=== PATIENT | female | born 1935 | race Caucasian/White ===

== ENCOUNTER 2017-12-10 10:06 | Inpatient (IN) ==
--- NOTE | 2017-12-10 08:15 | Anesthesia Evaluation PreOp ---
Date of Encounter: 12/10/17 Time of Encounter: 10:38 - Past History Planned Operation: Right Total Shoulder Cardiac History: CHF, HTN Pulmonary History: Snore, ISAAC Dx (uses CPAP) ORTHOPEDIC CAST SPECIALIST History: TIA Other Medical History: Hepatic (autoimmune hepatitis), GERD, Other (Factor 5 Leiden, H/O DVT) Anesthesia History: No Prior Anesthetic Complications, Past Anesthesia Alcohol Use: none Drug use: none Medications and Allergies Aspirin Enteric Coated [Aspirin EC] 81 mg PO DAILY 08/12/16 [History] Calcium Carbonate/Vitamin D3 [Calcium 500-Vit D3 200 Tablet] 1 each PO DAILY 09/27 [History] Cholecalciferol (Vitamin D3) [Vitamin D3] 2,000 unit PO DAILY 08/12/16 [History] Citalopram [CeleXA] 20 mg PO HS 08/12/16 [History] Codeine Sulfate 30 mg PO BID PRN 08/12/16 [History] Gabapentin [Neurontin] 400 mg PO TID 08/12/16 [History] Meclizine HCl [Verticalm] 25 mg PO TID PRN 08/12/16 [History] Multivitamin with Minerals [One-A-Day Maximum Formula] 1 each PO DAILY 08/12/16 [History] Oxybutynin Chloride [Ditropan Xl] 5 mg PO DAILY 08/12/16 [History] Ropinirole HCl [Requip] 0.25 mg PO TID 08/12/16 [History] Vit C/Vit E AC/Lut/Copper/Zinc [Preservision Lutein Softgel] 1 each PO DAILY 09/27 [History] Atorvastatin [Lipitor] 10 mg PO HS 07/21/17 [History] Furosemide [Lasix] 20 mg PO DAILY 07/21/17 [History] Omeprazole [PriLOSEC] 40 mg PO DAILY 07/21/17 [History] Oxygen 2 l NS HS 07/21/17 [History] Meclizine HCl [Verticalm] 25 mg PO 1200 12/10/17 [History] predniSONE [PredniSONE] 2.5 mg PO Q48H 12/10/17 [History] predniSONE [PredniSONE] 5 mg PO Q48H 12/10/17 [History] 3 Allergy/AdvReac Type Severity Reaction Status Date / Time Ethambutol Allergy Mild Blurry Verified 12/10/17 10:48 Vision acetaminophen [From Tylenol] Allergy HEPATITIS Verified 12/10/17 10:48 REACTION aspirin [ASA] Allergy UNKNOWN Verified 12/10/17 10:48 clarithromycin Allergy Rash Verified 12/10/17 10:48 morphine Allergy Shakiness Verified 12/10/17 10:48 Sulfa (Sulfonamide Allergy unknown Verified 12/10/17 10:48 Antibiotics) azathioprine [From Imuran] AdvReac Shakiness Verified 12/10/17 10:48 cephalexin [From Keflex] AdvReac Diarrhea Verified 12/10/17 10:48 Oxycodone AdvReac Nausea Verified 12/10/17 10:48 Penicillins [PCN] AdvReac Hives Verified 12/10/17 10:48 - Meds/Allergy Pre-op Review Medications Reviewed: Yes Allergies Reviewed: Yes Beta Blockers on Current Med List: No Anesthesia Results - Labs Laboratory Tests 12/09/17 12/09/17 12/09/17 14:35 14:35 14:35 WBC 9.7 Hgb 14.1 Hct 43.1 Plt Count 252 PT 11.5 INR 1.1 APTT 30.1 Sodium 139 Potassium 4.3 BUN 22 Creatinine 1.00 - Imaging EKG: report reviewed (08/19/2017 SINUS TACHYCARDIA MARKED LEFT AXIS DEVIATION [ QRS AXIS < -30] LEFT BUNDLE BRANCH BLOCK [120+ ms QRS DURATION, 80+ ms Q/S IN V1 /V2, 85+ ms R IN I/aVL/V5/V6] INTERPRETATION BASED ON A DEFAULT AGE OF 40 YEARS ) Additional studies: 07/09/2017 Echo Impressions: LVEF 55%. Normal LV chamber size, wall thickness and function. Mild left ventricular diastolic dysfunction. Normal right ventricular structure and function. No evidence of pulmonary hypertension. No significant valvular dysfunction. 08/07/2010 Cath Impression: Normal coronary angiography; there was no evidence of significant coronary artery disease. Normal left ventricular size and contractility. The left ventricular ejection fraction was 60%. Anesthesia Exam O2 Sat Height 1.63 m Height 1.63 m Height 1.63 m Weight 80.286 kg Weight 80.286 kg Weight 80.286 kg O2 Sat by Pulse Oximetry 92 Vital Signs Temp Pulse Resp BP Pulse Ox 98.3 F 75 18 113/74 92 12/10/17 10:29 12/10/17 10:29 12/10/17 10:29 12/10/17 10:29 12/10/17 10:29 Height: 5'4'' Weight: 177 lbs NPO (# of Hours): 8 Pain Scale: 0 Pain Scale Used: Numeric (1 - 10) - HEENT Pupil (Motor): EOMI Mallampati: IV Teeth: Poor dentition Denture Type: Upper: Partial, Lower: Partial Oral Opening: Greater than 3 - ORTHOPEDIC CAST SPECIALIST LOC: Oriented ORTHOPEDIC CAST SPECIALIST Motor: Normal RUE, Normal LUE, Normal RLE, Normal LLE, Normal Face ORTHOPEDIC CAST SPECIALIST Sensory: Normal: Face, Deficit: RUE (mild neuropathy hand), LUE (mild neuropathy hand), RLE (mild neuropathy foot), LLE (mild neuropathy foot) - Cardiac Rhythm: Regular Murmur: None - Pulmonary Breath Sounds: bilateral Clear Respiratory Effort: Symmetrical Anesthesia Assess/Plan ASA Score: 3 Modified Myra Scale for Level of Consciousness: Cooperative, oriented, and tranquil Anesthetic Plan: General, Regional Monitoring Plan: Standard Monitors Recovery Plan: PACU
[~2017-12-10 10:06] MED LIST: *HR* FentaNYL (PF) 100 MCG/2 ML VIAL IVP PRN; *HR* Labetalol 20 MG/4 ML SYRINGE IVP PRN; *HR* OxyCODONE Immed Rel 5 MG TABLET PO PRN
[2017-12-10] MEDS ORDERED: Lidocaine -MPF 1% 2 ML VIAL ID ONE (10:26)
[2017-12-10] MEDS ORDERED: Clindamycin 900 MG/50 ML 900 MG/50 ML IV.SOLN IVPB ONE (10:26)
[2017-12-10] MEDS ORDERED: Ringers Solution, Lactated 1,000 ML IVC SCH ×2 (10:30→14:27)
--- NOTE | 2017-12-10 11:03 | History & Physical Report ---
Date of Encounter: 12/10/17 Time of Encounter: 11:01 24 Hour HP Update - Instructions Instructions: If the History and Physical is less than 30 days old and was completed prior to A.M. admission and or procedure and has NOT been updated on calendar day of procedure please complete this update prior to performing procedure. - Update Patient reports changes in Medical Condition: No Changes in examination, assessment, or condition: No Changes in Medication: No Preop tests/diagnostics Reviewed: Yes Surgery Remains Indicated: Yes Consent for Planned Operative Procedure(s) Verified: Yes - Pre-Operative Checklist Preoperative Checklist Indicated: No Prophylactic Antibiotic Ordered: Yes Is VTE Prophylaxis Indicated?: Yes
--- NOTE | 2017-12-10 11:08 | Discharge Summary ---
Date of Encounter: 12/12/17 Time of Encounter: 06:41 - Discharge Diagnosis (1) Rotator cuff tear arthropathy of right shoulder Priority: Primary Status: Chronic (2) Obesity (BMI 30.0-34.9) Priority: Secondary Status: Chronic (3) Meniere's disease Priority: Secondary Status: Chronic Qualifiers: Laterality: unspecified laterality Qualified Code(s): H81.09 - Meniere's disease, unspecified ear (4) Restless leg syndrome, controlled Priority: Secondary Status: Chronic (5) HLD (hyperlipidemia) Priority: Secondary Status: Chronic Qualifiers: Hyperlipidemia type: unspecified Qualified Code(s): E78.5 - Hyperlipidemia , unspecified (6) HTN (hypertension) Priority: Secondary Status: Chronic Qualifiers: Hypertension type: unspecified Qualified Code(s): I10 - Essential (primary ) hypertension (7) Factor V Leiden Priority: Secondary Status: Chronic (8) Autoimmune hepatitis Priority: Secondary Status: Chronic (9) Diastolic CHF Priority: Secondary Status: Chronic Qualifiers: Heart failure chronicity: unspecified Qualified Code(s): I50.30 - Unspecified diastolic (congestive) heart failure (10) Atrial fibrillation Priority: Secondary Status: Chronic Qualifiers: Atrial fibrillation type: unspecified Qualified Code(s): I48.91 - Unspecified atrial fibrillation (11) Osteoporosis Priority: Secondary Status: Chronic Qualifiers: Osteoporosis type: unspecified Presence of current pathological fracture: unspecified Qualified Code(s): M81.0 - Age-related osteoporosis without current pathological fracture (12) Presence of IVC filter Priority: Secondary Status: Chronic (13) Status post CVA Priority: Secondary Status: Chronic (14) Herpes zoster Priority: Secondary Status: Acute Qualifiers: Herpes zoster complications: without complications Qualified Code(s): B02.9 - Zoster without complications (15) Recurrent falls Priority: Secondary Status: Acute (16) Status post total replacement of right shoulder Priority: Primary Status: Acute (17) T2DM (type 2 diabetes mellitus) Priority: Secondary Status: Acute Qualifiers: Diabetes mellitus care home insulin use: without care home use Diabetes mellitus complication status: with neurologic complications Diabetes mellitus complication detail: with polyneuropathy Qualified Code(s): E11.42 - Type 2 diabetes mellitus with diabetic polyneuropathy - Hospital Course Hospital course: Ms. Jha is a 82 year old female Status post right total shoulder replacement The patient had an uneventful postoperative course. They received antibiotics and physical therapy and were discharged in stable condition. There will follow -up in the office in 2 weeks. - Time Spent with Patient Total time spent providing and/or coordinating discharge services: - Discharge Medications Home Medications: Aspirin Enteric Coated [Aspirin EC] 81 mg PO DAILY 08/12/16 [History] Calcium Carbonate/Vitamin D3 [Calcium 500-Vit D3 200 Tablet] 1 each PO DAILY 09/27 [History] Cholecalciferol (Vitamin D3) [Vitamin D3] 2,000 unit PO DAILY 08/12/16 [History] Citalopram [CeleXA] 20 mg PO HS 08/12/16 [History] Codeine Sulfate 30 mg PO BID PRN 08/12/16 [History] Gabapentin [Neurontin] 400 mg PO TID 08/12/16 [History] Meclizine HCl [Verticalm] 25 mg PO TID PRN 08/12/16 [History] Multivitamin with Minerals [One-A-Day Maximum Formula] 1 each PO DAILY 08/12/16 [History] Oxybutynin Chloride [Ditropan Xl] 5 mg PO DAILY 08/12/16 [History] Ropinirole HCl [Requip] 0.25 mg PO TID 08/12/16 [History] Vit C/Vit E AC/Lut/Copper/Zinc [Preservision Lutein Softgel] 1 each PO DAILY 09/27 [History] Atorvastatin [Lipitor] 10 mg PO HS 07/21/17 [History] Furosemide [Lasix] 20 mg PO DAILY 07/21/17 [History] Omeprazole [PriLOSEC] 40 mg PO DAILY 07/21/17 [History] Oxygen 2 l NS HS 07/21/17 [History] Meclizine HCl [Verticalm] 25 mg PO 1200 12/10/17 [History] predniSONE [PredniSONE] 2.5 mg PO Q48H 12/10/17 [History] predniSONE [PredniSONE] 5 mg PO Q48H 12/10/17 [History] Allergies/Adverse Reactions: 3 Allergy/AdvReac Type Severity Reaction Status Date / Time Ethambutol Allergy Mild Blurry Verified 12/10/17 10:48 Vision acetaminophen [From Tylenol] Allergy HEPATITIS Verified 12/10/17 10:48 REACTION aspirin [ASA] Allergy UNKNOWN Verified 12/10/17 10:48 clarithromycin Allergy Rash Verified 12/10/17 10:48 morphine Allergy Shakiness Verified 12/10/17 10:48 Sulfa (Sulfonamide Allergy unknown Verified 12/10/17 10:48 Antibiotics) azathioprine [From Imuran] AdvReac Shakiness Verified 12/10/17 10:48 cephalexin [From Keflex] AdvReac Diarrhea Verified 12/10/17 10:48 Oxycodone AdvReac Nausea Verified 12/10/17 10:48 Penicillins [PCN] AdvReac Hives Verified 12/10/17 10:48 Primary care physician: Turner Ventura MD - Patient Status Disposition: Home Health Service Condition: Good Functional capacity at discharge: uses cane/walker Overall status at discharge: patient is progressing back to baseline - Discharge Instructions Follow Up With: Turner Ventura MD [Primary Care Provider] -
[2017-12-10] MEDS ORDERED: *HR* Midazolam HCl 2 MG/2 ML VIAL ONE (11:33)
[2017-12-10] MEDS ORDERED: *HR* FentaNYL (PF) 100 MCG/2 ML VIAL ONE (11:33)
[2017-12-10] MEDS ORDERED: *HR* Propofol 200 MG/20 ML VIAL IVP ONE (11:33)
[2017-12-10] MEDS ORDERED: ROPIVACAINE HCL/PF 0.5% 30 ML VIAL ONE (11:35)
[2017-12-10] MEDS ORDERED: Dexamethasone 4 MG/ML VIAL ONE (11:35)
[2017-12-10] MEDS ORDERED: Bupivacaine/Clonidine Syringe 1 EACH SYRINGE ONE (11:35)
[2017-12-10] MEDS ORDERED: *HR* Etomidate 40 MG/20 ML VIAL IVP ONE (11:56)
--- NOTE | 2017-12-10 12:05 | Anesthesia Procedures ---
Date of Encounter: 12/10/17 Time of Encounter: 11:45 Procedures: Anesthesia - Nerve Block Procedure Date: 12/10/17 Time: 11:45 Allergies/Adv Reactions: multiple see chart Pre-op Diagnosis: right shoulder rotator cuff arthropathy Surgical Procedure: right total shoulder reverse Checklist: Correct Patient Identifier, Correct procedure, History checked (with dr Mcgrath) Correct side: Right Blood Thinner: No Monitor Applied: EKG, BP, Pulse Oximetry Supplemental Oxygen via Nasal Cannula (L/min): 2 Sedation: Versed (mg): 1 Sedation: Fentanyl (mcg): 50 Indication: Post Op Analgesia Pre-op Neuro Deficits: No Block Type: Supraclavicular, Other (superficial cervical and intercostobrachial) Catheter placed: No Sterile Technique: Yes Ultrasound used: Yes Anatomy identified: Yes Visual spread of Local: Yes Neuro Stimulation: No Blood on Needle Aspiration: No Smooth Injection of Local: Yes Pain with Injection of Local: No Prep: Chlorhexadine Needle: 22 x 50 mm Stimuplex Local: 0.25% Bupivicaine w/Clonidine 20 mcg/cc (10 ml used for superficial cervical and intercostobrachial), Ropivacaine (0.5% 30 ml with decadron 4 mg for supraclavicular) Volume (cc): 40 Number of Attempts: 1 Complications: None/effective block Vitals: see nurses notes for vitals, patient tolerated well, vitals stable throughout
[2017-12-10] MEDS ORDERED: Lidocaine -MPF 2% 2 ML VIAL ONE (12:34)
[2017-12-10] MEDS ORDERED: *HR* PHENYLEPHRINE 1,000 MCG/10 ML SYRINGE IVP ONE (12:48)
[2017-12-10] MEDS ORDERED: Hydrocortisone Sodium Succ 100 MG/2 ML VIAL ONE (12:56)
[2017-12-10] MEDS ORDERED: EPHEDrine 50 MG/ML VIAL ONE (13:01)
--- NOTE | 2017-12-10 13:29 | Orthopedic Operative Note ---
Date of procedure: 12/10/17 Pre-op diagnosis: Right shoulder cuff tear arthropathy Post-op diagnosis: same Procedure: Procedure: Total Shoulder Replacment Reverse, right Estimated blood loss: 100 cc Hardware: Metal and polyethylene replacement: Arthrex small glenoid baseplate, 2 4.5 screws. 1 6.5 screw, 39+4 glenosphere, 6 humeral stem, poly insert3 Exam Under anesthesia: Full motion no instability Procedural Notes: Irreparable rotator cuff tear Operative procedure: The patient was brought to the operating room and placed on the operating room table. After general anesthesia was administered the operative shoulder was examined. Findings were noted. The patient was placed in the modified beachchair position. All pressure points were padded appropriately. And the head was stabilized in the neutral position. The operative extremity was prepped and draped in the sterile surgical fashion. The patient received IV antibiotics prior to skin incision. A standard deltopectoral approach was made to the operative shoulder. Incision was made to the skin and subcutaneous tissue,hemo stasis was obtained with Bovie cautery. Using careful blunt dissection the cephalic vein was identified and mobilized medially. The deltopectoral interval was developed and the clavipectoral fascia was incised. The subscap was released off the lesser tuberosity and tagged with #2 FiberWire suture subscap was irreparable. The humerus was dislocated patient noted to have irreparable tear supraspinatus tendon, and the humeral cut was made along the anatomic neck. Anterior and posterior Bankart retractors were placed to expose the glenoid. The glenoid guide was seated and the centering hole was made. It was reamed with the appropriate reamer. Small baseplate was seated and secured with (2) 4.5 screws and one 6.5 screw. The baseplate was irrigated and dried and the 39+4 Glenosphere was seated and secured with the Garza taper. The Garza taper was tested and found to be secure the humerus was redislocated and prepared with the diaphyseal reamers, followed by a broaching process up to the appropriate size 6 in the patient's anatomic version. The metaphyseal reamer was then utilized. Trial reduction found the shoulder to be relocatable. Trial components were removed and the 6 stem was impacted in place in the patient's anatomic version. Trial reduction found the shoulder to be relocatable and stable with the appropriate 3 Trial component was removed and the real implant was seated and secured the shoulder was reduced. The shoulder had excellent motion and excellent stability and no evidence of dislocation. The deep tissue was irrigated with pulse irrigation. T The deltopectoral interval was closed with a running #1 PDS suture, subcutaneous tissue was irrigated and closed with 0 PDS suture, the skin was closed with Dermabond. The patient was placed in a sterile dressing, abduction brace and extubated. The patient was then transferred to the recovery room in stable condition. Anesthesia: GETA Surgeon: Gopal Sevilla Was there an assistant property manager present: No Estimated blood loss (cc): 100 Condition: stable Disposition: PACU
[2017-12-10 14:08] LABS: Hematocrit 41.6 % (35.3-44.9)
--- NOTE | 2017-12-10 14:15 | Anesthesia Evaluation Post Op ---
Date of Encounter: 12/10/17 Time of Encounter: 14:14 - Vital Signs Vital Signs: Vital Signs/O2 Sat, Most Current Temp Pulse Resp BP Pulse Ox 97.2 F L 77 16 129/80 93 12/10/17 13:40 12/10/17 14:00 12/10/17 14:00 12/10/17 14:00 12/10/17 14:00 - Lungs Lungs: Clear Ascult./Percussion - Airway Airway: Non-obstructed - Cardiovascular Regular Rate - Mental Status Mental Status: Alert & Oriented, Answers Appropriately - Pain Pain Scale: 0 - Hydration Hydration: NPO, Has not voided - Discharge PostOp Status: Transfer Patient to floor
[2017-12-10] MEDS ORDERED: *HR* Codeine Sulfate 30 MG TABLET PO PRN (14:27)
[2017-12-10] MEDS ORDERED: Sennosides 8.6 MG TABLET PO PRN (14:27)
[2017-12-10] MEDS ORDERED: D5% in Water 1,000 ML IVC PRN (14:27)
[2017-12-10] MEDS ORDERED: *HR* HYDROcodone/Acet 10/325 mg TABLET PO PRN (14:27)
[2017-12-10] MEDS ORDERED: MOM Conc 10 ML UD.LIQ PO PRN (14:27)
[2017-12-10] MEDS ORDERED: Ondansetron 4 MG/2 ML VIAL IVP PRN (14:27)
[2017-12-10] MEDS ORDERED: Temazepam 15 MG CAPSULE PO PRN (14:27)
[2017-12-10] MEDS ORDERED: Naloxone 0.4 MG/ML INJ IVP PRN (14:27)
[2017-12-10] MEDS ORDERED: *HR* Dextrose 50 % in Water (Syg) 50 ML SYRINGE IVP PRN (14:27)
[2017-12-10] MEDS ORDERED: Dextrose Gel 15 GM/37.5 ML TUBE PO PRN ×2 (14:27)
--- NOTE | 2017-12-10 15:21 | Event Note ---
<MarilinmagnusWest bunn - Last Filed: 12/10/17 15:21> Date of Encounter: 12/10/17 Time of Encounter: 15:12 Rapid response called at 1505. Patient was noticed to have right-sided facial droop and weakness in her right upper extremity. She is postoperative for a right shoulder replacement as of this afternoon. Patient was seen and examined at bedside. She was questioned and was alert and oriented 3 and answering questions appropriately. She had no complaints including numbness, tingling, weakness at time of rapid response. Per nursing report, they held a mirror to her face and she said that the right-sided facial droop was new. NIH stroke scale was assessed and calculated to be 1. Patient had a right upper extremity nerve block prior to her surgery but did report sensation bilaterally. Muscle strength equal in both upper extremities. Due to low NIH stroke scale and minimal symptoms from the patient she was not sent to the emergency room for telecommunication. We will obtain a head CT and perform neurologic checks every 2 hours. We will also obtain blood work of CBC, BMP, coagulation studies. Primary attending notified. <Adolfo Keating - Last Filed: 12/10/17 18:24> Date of Encounter: 12/10/17 Rapid response called due to R facial droop. Pt with hx of TIA and factor V Leiden. Exam Slight R facial droop noted. NIH 1 CT neg for bleed. I/P 1. Possible TIA versus CVA given history. Agree with assessment and plan as documented above. CCM 38min
[2017-12-10] MEDS: Insulin LISPRO 300 UNITS/3 ML VIAL SQ SCH ×3 (15:30→20:55)
[2017-12-10 15:51] LABS: INR 1.1; Prothrombin Time 11.8 Seconds (9.4-12.1)
[2017-12-10 15:53] LABS: Activated Partial Thrombo Time 29.3 Seconds (26.0-36.0)
[2017-12-10] MEDS ORDERED: Clindamycin 900 MG/50 ML 900 MG/50 ML IV.SOLN IVPB SCH (16:00)
[2017-12-10 16:05] LABS: BUN/Creatinine Ratio 23 (6-26); Blood Urea Nitrogen 22 mg/dL (8-23); Calcium 9.5 mg/dL (8.6-10.3); Carbon Dioxide 25 mEq/L (23-29); Chloride 109 mEq/L (98-107); Glucose 120 mg/dL (70-105); Osmolality,Calculated 299 (280-300); Potassium 3.8 mEq/L (3.5-5.1); Sodium 142 mEq/L (136-145); eGFR For African Americans > 60 (> 60); eGFR For Non-African Americans 56 (> 60)
[2017-12-10] MEDS: rOPINIRole 0.25 MG TABLET PO SCH ×2 (16:05→20:55)
[2017-12-10] MEDS: Gabapentin 400 MG CAPSULE PO SCH ×2 (16:05→20:55)
--- NOTE | 2017-12-10 17:46 | Event Note ---
Date of Encounter: 12/10/17 Time of Encounter: 17:15 POD#0 R TSR Reverse 12/10/17 Roel Patient seen following rapid response. Resting comfortably in bed - asleep upon entering room. Easily aroused by saying name. Patient alert and oriented x 3. Discussed facial drooping. CN grossly appear intact. Slight drooping right eyelid noted, watering of this eye noted. Patient denies blurred vision. Admits to clearing throat, though denies choking or feeling unable to swallow. Nurse states completed dysphagia screen and patient passed. Patient denies altered sensation to right side of face. Admits to altered sensation to RUE as expected as patient received block. RLE appears unaffected. CT negative. Rapid response team appreciated. Anesthesia also it appears evaluated patient - they state likely secondary to block extension to neck and face. After examination and Head Ct negative would agree with assessment and request nursing staff to continue to monitor and will expect resolution appx 24-48 hrs following block administration. Communicated this to patient. Dr. Sevilla notified. Will reevaluate again tomorrow.
[2017-12-10] MEDS: predniSONE 5 MG TABLET PO SCH (18:03)
[2017-12-10] MEDS: *HR* Enoxaparin 30 MG/0.3 ML SYRINGE SQ SCH (18:03)
--- NOTE | 2017-12-10 18:05 | Anesthesia Progress Note ---
Date of Encounter: 12/10/17 Time of Encounter: 16:15 Anesthesia Note - Note Note: I was made aware of a patient event. Nursing staff noticed right facial droop. Concern for CVA given pmh of TIA. The patient had right shoulder surgery under [facility], with preop supraclavicular block for postop pain control. The patient was interviewed and examined in the presence of RN. Subjective: The patient is comfortable, not in any distress. c/o watery right eye. Objective: AAOx3, VSS. Cranial nerves 3, 4, 6, 7 and 12 are grossly normal. Right eye ptosis and conjuctival congestion. Partial sensory and motor nerve blockade in right upper extremity. Left upper extremity and bilateral lower extremities with normal sensation and grade 5/5 motor function. Assessement and Impression: Cervical sympathetic nerve blockade (Camilo's syndrome). Plan: The patient and nursing staff were reassured that this is a common side effect of brachial plexus blocks (supraclavicular and interscalene), and is expected to resolve spontaneously with the block, in approximately 12-24 hours.
[2017-12-10] MEDS: Clindamycin 900 MG/50 ML 900 MG/50 ML IV.SOLN IVPB SCH (20:54)
[2017-12-10] MEDS ORDERED: NON-FORMULARY MEDICATION 1 EACH EACH (Oxygen [Oxygen] 2 L) NS SCH (21:00)
[2017-12-11 01:20] LABS: Hematocrit 39.6 % (35.3-44.9); Hemoglobin 13.1 g/dL (11.5-15.4)
[2017-12-11] MEDS: traMADol 50 MG TABLET PO PRN (04:38)
[2017-12-11] MEDS: Clindamycin 900 MG/50 ML 900 MG/50 ML IV.SOLN IVPB SCH (04:38)
--- NOTE | 2017-12-11 06:20 | Orthopedics Progress Note ---
Date of Encounter: 12/11/17 Time of Encounter: 06:19 - Assessment and Plan (1) Rotator cuff tear arthropathy of right shoulder Current Visit: Yes Status: Chronic (2) Obesity (BMI 30.0-34.9) Current Visit: Yes Status: Chronic (3) Meniere's disease Current Visit: No Status: Chronic Qualifiers: Laterality: unspecified laterality Qualified Code(s): H81.09 - Meniere's disease, unspecified ear (4) Restless leg syndrome, controlled Current Visit: No Status: Chronic (5) HLD (hyperlipidemia) Current Visit: No Status: Chronic Qualifiers: Hyperlipidemia type: unspecified Qualified Code(s): E78.5 - Hyperlipidemia , unspecified (6) HTN (hypertension) Current Visit: No Status: Chronic Qualifiers: Hypertension type: unspecified Qualified Code(s): I10 - Essential (primary ) hypertension (7) Factor V Leiden Current Visit: No Status: Chronic (8) Autoimmune hepatitis Current Visit: No Status: Chronic (9) Diastolic CHF Current Visit: No Status: Chronic Qualifiers: Heart failure chronicity: unspecified Qualified Code(s): I50.30 - Unspecified diastolic (congestive) heart failure (10) Atrial fibrillation Current Visit: No Status: Chronic Qualifiers: Atrial fibrillation type: unspecified Qualified Code(s): I48.91 - Unspecified atrial fibrillation (11) Osteoporosis Current Visit: No Status: Chronic Qualifiers: Osteoporosis type: unspecified Presence of current pathological fracture: unspecified Qualified Code(s): M81.0 - Age-related osteoporosis without current pathological fracture (12) Presence of IVC filter Current Visit: No Status: Chronic (13) Status post CVA Current Visit: No Status: Chronic (14) Herpes zoster Current Visit: No Status: Acute Qualifiers: Herpes zoster complications: without complications Qualified Code(s): B02.9 - Zoster without complications (15) Recurrent falls Current Visit: No Status: Acute (16) Status post total replacement of right shoulder Current Visit: Yes Status: Acute (17) T2DM (type 2 diabetes mellitus) Current Visit: No Status: Acute Qualifiers: Diabetes mellitus long-term insulin use: without long-term use Diabetes mellitus complication status: with neurologic complications Diabetes mellitus complication detail: with polyneuropathy Qualified Code(s): E11.42 - Type 2 diabetes mellitus with diabetic polyneuropathy Subjective Interval history: Patient was seen this morning doing well without complaints. Afebrile vital signs stable. Operative extremity: Neurovascularly intact Dressing clean dry and intact Calves nontender Assessment and plan: Continue with postoperative care Hematocrit 39The patient with effects of nerve block causing issues concerning stroke which were negative. Patient doing once morning no complaints Objective Vital signs: Vital Signs Temp Pulse Resp BP Pulse Ox 12/11/17 03:28 97.5 F L 53 14 101/57 97 12/10/17 23:49 97.8 F 66 14 105/58 96 12/10/17 18:14 97.8 F 83 16 101/64 92 12/10/17 17:38 98.0 F 82 17 108/72 93 12/10/17 16:28 98.0 F 79 16 109/69 94 12/10/17 15:40 98.0 F 80 18 110/75 92 12/10/17 15:00 97.9 F 85 18 108/63 90 12/10/17 14:57 97.9 F 85 18 108/63 90 12/10/17 14:40 97.9 F 79 15 116/73 93 12/10/17 14:15 97.6 F 78 16 127/66 93 12/10/17 14:00 77 16 129/80 93 12/10/17 13:50 79 18 131/73 92 12/10/17 13:40 97.2 F L 78 20 132/69 95 12/10/17 12:35 56 16 118/59 94 12/10/17 12:20 58 16 117/65 94 12/10/17 11:58 59 16 113/61 92 12/10/17 11:51 63 18 110/76 96 12/10/17 10:29 98.3 F 75 18 113/74 92 Intake and Output 12/10/17 12/10/17 12/11/17 15:59 23:59 07:59 Intake Total 300 / 300 Output Total 100 / 100 1050 / 1050 125 / 125 Balance -100 / -100 -750 / -750 -125 / -125 Intake: IV Fluids 50 / 50 Cleocin Premix 900 MG/50 ML 900 50 / 50 mg In 50 ml @ 50 mls/hr IVPB Q8H [facility] Rx#:[id number] Oral 250 / 250 Output: Urine 1050 / 1050 125 / 125 Estimated Blood Loss 100 / 100 Other: Stool Size Small Stool Consistency formed Stool Characteristics Normal for Patient Stool Color Brown # Bowel Movements 1 Weight 80.286 kg Blood Glucose* 119 133 - Labs CBC & BMP: 12/11/17 00:50 12/10/17 15:32 Labs: Abnormal lab results Chloride 109 mEq/L (98-107) H 12/10/17 15:32 Est GFR (Non-Af Amer) 56 (> 60) L 12/10/17 15:32 Glucose 120 mg/dL (70-105) H 12/10/17 15:32 POC Glucose 117 mg/dL (70-99) H 12/10/17 14:59 - VTE Documentation of Mechanical Device: Venous foot pump, device Consult Discharge Plan - Plan Referrals: Turner Ventura MD [Primary Care Provider] -
[2017-12-11] MEDS: *HR* Enoxaparin 30 MG/0.3 ML SYRINGE SQ SCH ×2 (06:55→17:55)
[2017-12-11] MEDS: *HR* HYDROcodone/Acet 5/325 mg TABLET PO PRN ×4 (07:01→22:05)
--- NOTE | 2017-12-11 08:36 | Event Note ---
Date of Encounter: 12/11/17 Time of Encounter: 08:05 PCR- POD#1 R TSR reverse 12/10/17 Roel PCR - Patient seen at bedside. Sitting up eating breakfast. Labwork and medications reviewed. Pain control: Adequate - states block has worn off and she is feeling pain at this time however states it is managed. Participating in PT. All questions and concerns addressed. Educated on use of incentive spirometer, ambulation, and hydration. Patient educated on post-operative restrictions and care. Addressed: Facial drooping near resolved which is concurrent with patient's increased pain to the RUE. CN grossly intact. Patient admits to "coughing fit" early this morning with resolution thereafter of coughing/clearing throat. D/C plan: Home with HH tomorrow.
--- NOTE | 2017-12-11 08:39 | Physician Discharge Referral ---
Home Health/Hosp Referral Info Transfer to: Home Health Attending Provider: Dr Gopal Sevilla - Diagnosis (1) Status post total replacement of right shoulder Priority: Primary Status: Acute (2) Rotator cuff tear arthropathy of right shoulder Priority: Primary Status: Chronic (3) History of CVA (cerebrovascular accident) Priority: Secondary Status: Chronic (4) History of DVT (deep vein thrombosis) Priority: Secondary Status: Chronic (5) Factor V Leiden Priority: Secondary Status: Chronic (6) Diabetes mellitus Priority: Secondary Status: Chronic (7) ISAAC on CPAP Priority: Secondary Status: Chronic (8) History of CHF (congestive heart failure) Priority: Secondary Status: Chronic (9) Dependence on nocturnal oxygen therapy Priority: Secondary Status: Chronic (10) Autoimmune hepatitis Priority: Secondary Status: Chronic - Respiratory Orders Smoking Cessation: Smoking cessation has been advised. For more information, call the [place] Tobacco Quit Line at 0-700-YDSV-NOW. - Dressing/Wound Care Site: right shoulder Type of Dressing/Treatments w/Frequency: Opsite placed. Keep dressing intact until first follow up appointment. If > 50% saturated, notify office, remove dressing and place appropriate dressing back in place. Leave Zipline intact. Opsite dressing is water resistant, not water- proof. OK to shower, but do not get dressing wet. - Diet/Nutrition Diet/Nutrition Orders: Regular - Activity Activity Orders: Up ad abdi, Ambulate, Chair - Services Needed Following services are medically necessary services: Nursing, Home Health Aide, Physical Therapy, Occupational Therapy Home Care Orders: PT/OT. NWB to affected upper extremity. Follow Shoulder Precautions x 6 weeks. Stay in brace during activity and at night. Remove brace during exercises. ICE and elevate extremity frequently throughout the day. - Transfer Medications Home Medications: Aspirin Enteric Coated [Aspirin EC] 81 mg PO DAILY 08/12/16 [History] Calcium Carbonate/Vitamin D3 [Calcium 500-Vit D3 200 Tablet] 1 each PO DAILY 09/27 [History] Cholecalciferol (Vitamin D3) [Vitamin D3] 2,000 unit PO DAILY 08/12/16 [History] Citalopram [CeleXA] 20 mg PO HS 08/12/16 [History] Codeine Sulfate 30 mg PO BID PRN 08/12/16 [History] Gabapentin [Neurontin] 400 mg PO TID 08/12/16 [History] Meclizine HCl [Verticalm] 25 mg PO TID PRN 08/12/16 [History] Multivitamin with Minerals [One-A-Day Maximum Formula] 1 each PO DAILY 08/12/16 [History] Oxybutynin Chloride [Ditropan Xl] 5 mg PO DAILY 08/12/16 [History] Ropinirole HCl [Requip] 0.25 mg PO TID 08/12/16 [History] Vit C/Vit E AC/Lut/Copper/Zinc [Preservision Lutein Softgel] 1 each PO DAILY 09/27 [History] Atorvastatin [Lipitor] 10 mg PO HS 07/21/17 [History] Furosemide [Lasix] 20 mg PO DAILY 07/21/17 [History] Omeprazole [PriLOSEC] 40 mg PO DAILY 07/21/17 [History] Oxygen 2 l NS HS 07/21/17 [History] Meclizine HCl [Verticalm] 25 mg PO 1200 12/10/17 [History] predniSONE [PredniSONE] 2.5 mg PO Q48H 12/10/17 [History] predniSONE [PredniSONE] 5 mg PO Q48H 12/10/17 [History] Allergies/Adverse Reactions: 3 Allergy/AdvReac Type Severity Reaction Status Date / Time Ethambutol Allergy Mild Blurry Verified 12/10/17 10:48 Vision acetaminophen [From Tylenol] Allergy HEPATITIS Verified 12/10/17 10:48 REACTION aspirin [ASA] Allergy UNKNOWN Verified 12/10/17 10:48 clarithromycin Allergy Rash Verified 12/10/17 10:48 morphine Allergy Shakiness Verified 12/10/17 10:48 Sulfa (Sulfonamide Allergy unknown Verified 12/10/17 10:48 Antibiotics) azathioprine [From Imuran] AdvReac Shakiness Verified 12/10/17 10:48 cephalexin [From Keflex] AdvReac Diarrhea Verified 12/10/17 10:48 Oxycodone AdvReac Nausea Verified 12/10/17 10:48 Penicillins [PCN] AdvReac Hives Verified 12/10/17 10:48 Certification: Further, I certify that my clinical findings support that this patient is homebound (i.e. absences from home require considerable and taxing effort and are for medical reasons or [employer] services or infrequently or short duration when for other reasons) because: Homebound Reason: Post-surgery restriction and or conditions limit ability to leave home Attestation: My signature below is to certify that this patient is under my care and that I, or nurse practitioner, or a physician assistant field hockey coach working with me, has a face-to- face encounter with this patient.
[2017-12-11] MEDS: Insulin LISPRO 300 UNITS/3 ML VIAL SQ SCH ×4 (08:47→22:01)
[2017-12-11] MEDS: rOPINIRole 0.25 MG TABLET PO SCH ×3 (09:30→22:00)
[2017-12-11] MEDS: Cholecalciferol (D-3) 1,000 UNIT TABLET PO SCH (09:30)
[2017-12-11] MEDS: Aspirin Enteric Coated 81 MG Tablet PO SCH (09:30)
[2017-12-11] MEDS: Multivit/Ca/Min/Fe/FA 1 TAB TABLET PO SCH (09:30)
[2017-12-11] MEDS: Gabapentin 400 MG CAPSULE PO SCH ×3 (09:30→22:00)
[2017-12-11] MEDS: Furosemide 20 MG TABLET PO SCH (09:31)
[2017-12-11] MEDS ORDERED: predniSONE 5 MG TABLET PO SCH (17:00)
[2017-12-12 01:04] LABS: Hematocrit 38.5 % (35.3-44.9); Hemoglobin 12.7 g/dL (11.5-15.4)
[2017-12-12] MEDS: *HR* Enoxaparin 30 MG/0.3 ML SYRINGE SQ SCH ×2 (06:03→16:14)
[2017-12-12] MEDS: *HR* HYDROcodone/Acet 5/325 mg TABLET PO PRN ×2 (06:03→20:52)
--- NOTE | 2017-12-12 06:43 | Orthopedics Progress Note ---
Date of Encounter: 12/12/17 Time of Encounter: 06:43 - Assessment and Plan (1) Rotator cuff tear arthropathy of right shoulder Current Visit: Yes Status: Chronic (2) Obesity (BMI 30.0-34.9) Current Visit: Yes Status: Chronic (3) Meniere's disease Current Visit: No Status: Chronic Qualifiers: Laterality: unspecified laterality Qualified Code(s): H81.09 - Meniere's disease, unspecified ear (4) Restless leg syndrome, controlled Current Visit: No Status: Chronic (5) HLD (hyperlipidemia) Current Visit: No Status: Chronic Qualifiers: Hyperlipidemia type: unspecified Qualified Code(s): E78.5 - Hyperlipidemia , unspecified (6) HTN (hypertension) Current Visit: No Status: Chronic Qualifiers: Hypertension type: unspecified Qualified Code(s): I10 - Essential (primary ) hypertension (7) Factor V Leiden Current Visit: No Status: Chronic (8) Autoimmune hepatitis Current Visit: No Status: Chronic (9) Diastolic CHF Current Visit: No Status: Chronic Qualifiers: Heart failure chronicity: unspecified Qualified Code(s): I50.30 - Unspecified diastolic (congestive) heart failure (10) Atrial fibrillation Current Visit: No Status: Chronic Qualifiers: Atrial fibrillation type: unspecified Qualified Code(s): I48.91 - Unspecified atrial fibrillation (11) Osteoporosis Current Visit: No Status: Chronic Qualifiers: Osteoporosis type: unspecified Presence of current pathological fracture: unspecified Qualified Code(s): M81.0 - Age-related osteoporosis without current pathological fracture (12) Presence of IVC filter Current Visit: No Status: Chronic (13) Status post CVA Current Visit: No Status: Chronic (14) Herpes zoster Current Visit: No Status: Acute Qualifiers: Herpes zoster complications: without complications Qualified Code(s): B02.9 - Zoster without complications (15) Recurrent falls Current Visit: No Status: Acute (16) Status post total replacement of right shoulder Current Visit: Yes Status: Acute (17) T2DM (type 2 diabetes mellitus) Current Visit: No Status: Acute Qualifiers: Diabetes mellitus snf insulin use: without snf use Diabetes mellitus complication status: with neurologic complications Diabetes mellitus complication detail: with polyneuropathy Qualified Code(s): E11.42 - Type 2 diabetes mellitus with diabetic polyneuropathy Subjective Interval history: Patient was seen this morning doing well without complaints. Afebrile vital signs stable. Operative extremity: Neurovascularly intact Dressing clean dry and intact Calves nontender Assessment and plan: Continue with postoperative care Discharged tomorrow Objective Vital signs: Vital Signs Temp Pulse Resp BP Pulse Ox 12/12/17 00:06 100.0 F H 62 14 105/70 95 12/11/17 18:56 97.7 F 65 14 112/73 93 12/11/17 15:57 97.6 F 64 17 102/67 98 12/11/17 11:30 97.8 F 108 16 106/61 97 12/11/17 07:59 97.7 F 66 17 97/60 95 Intake and Output 12/11/17 12/11/17 12/12/17 15:59 23:59 07:59 Intake Total 240 / 240 200 / 200 Output Total 400 / 400 Balance 240 / 240 -200 / -200 Intake: Oral 240 / 240 200 / 200 Output: Urine 400 / 400 Other: Meal Lunch Percent of Meal Consumed 85% # Voids 1 Blood Glucose* 92 134 - Labs CBC & BMP: 12/12/17 00:46 12/10/17 15:32 Labs: Abnormal lab results Chloride 109 mEq/L (98-107) H 12/10/17 15:32 Est GFR (Non-Af Amer) 56 (> 60) L 12/10/17 15:32 Glucose 120 mg/dL (70-105) H 12/10/17 15:32 POC Glucose 134 mg/dL (70-99) H 12/11/17 19:48 - VTE Documentation of Mechanical Device: Venous foot pump, device Consult Discharge Plan - Plan Referrals: Turner Ventura MD [Primary Care Provider] -
[2017-12-12] MEDS: Insulin LISPRO 300 UNITS/3 ML VIAL SQ SCH ×4 (07:45→22:43)
[2017-12-12] MEDS: Aspirin Enteric Coated 81 MG Tablet PO SCH (09:08)
[2017-12-12] MEDS: Gabapentin 400 MG CAPSULE PO SCH ×3 (09:08→20:47)
[2017-12-12] MEDS: rOPINIRole 0.25 MG TABLET PO SCH ×3 (09:08→20:47)
[2017-12-12] MEDS: Cholecalciferol (D-3) 1,000 UNIT TABLET PO SCH (09:09)
[2017-12-12] MEDS: Multivit/Ca/Min/Fe/FA 1 TAB TABLET PO SCH (09:09)
[2017-12-12] MEDS: Furosemide 20 MG TABLET PO SCH (09:09)
--- NOTE | 2017-12-12 12:13 | Event Note ---
Date of Encounter: 12/12/17 Time of Encounter: 08:20 PCR- POD#2 R TSR reverse 12/10/17 Roel PCR - Patient seen at bedside. Sitting up eating breakfast. Labwork and medications reviewed. Pain control: Adequate. Participating in PT. All questions and concerns addressed. Educated on use of incentive spirometer, ambulation, and hydration. Patient educated on post-operative restrictions and care. Addressed: Facial drooping resolved. D/C plan: ECF - patient using pari walker - script provided
--- NOTE | 2017-12-12 12:16 | Physician Discharge Referral ---
[facility] Referral Info [facility] Provider in Charge: Dr Gopal Sevilla - Diagnosis (1) Status post total replacement of right shoulder Priority: Primary Status: Acute (2) Rotator cuff tear arthropathy of right shoulder Priority: Primary Status: Chronic (3) History of CVA (cerebrovascular accident) Priority: Secondary Status: Chronic (4) History of DVT (deep vein thrombosis) Priority: Secondary Status: Chronic (5) Factor V Leiden Priority: Secondary Status: Chronic (6) Diabetes mellitus Priority: Secondary Status: Chronic (7) ISAAC on CPAP Priority: Secondary Status: Chronic (8) History of CHF (congestive heart failure) Priority: Secondary Status: Chronic (9) Dependence on nocturnal oxygen therapy Priority: Secondary Status: Chronic (10) Autoimmune hepatitis Priority: Secondary Status: Chronic Expected Duration of Placement: less than 30 days Prognosis: Good Aware of Diagnosis: Patient Aware of Prognosis: Patient - Transfer Medications Prescriptions: HYDROcodone/Acet 5/325 mg [[place] 5-325 mg] 1 tab PO Q4H PRN 7 Days #35 tab PRN Reason: Severe Pain Home Medications: Aspirin Enteric Coated [Aspirin EC] 81 mg PO DAILY 08/12/16 [History] Calcium Carbonate/Vitamin D3 [Calcium 500-Vit D3 200 Tablet] 1 each PO DAILY 09/27 [History] Cholecalciferol (Vitamin D3) [Vitamin D3] 2,000 unit PO DAILY 08/12/16 [History] Citalopram [CeleXA] 20 mg PO HS 08/12/16 [History] Codeine Sulfate 30 mg PO BID PRN 08/12/16 [History] Gabapentin [Neurontin] 400 mg PO TID 08/12/16 [History] Meclizine HCl [Verticalm] 25 mg PO TID PRN 08/12/16 [History] Multivitamin with Minerals [One-A-Day Maximum Formula] 1 each PO DAILY 08/12/16 [History] Oxybutynin Chloride [Ditropan Xl] 5 mg PO DAILY 08/12/16 [History] Ropinirole HCl [Requip] 0.25 mg PO TID 08/12/16 [History] Vit C/Vit E AC/Lut/Copper/Zinc [Preservision Lutein Softgel] 1 each PO DAILY 09/27 [History] Atorvastatin [Lipitor] 10 mg PO HS 07/21/17 [History] Furosemide [Lasix] 20 mg PO DAILY 07/21/17 [History] Omeprazole [PriLOSEC] 40 mg PO DAILY 07/21/17 [History] Oxygen 2 l NS HS 07/21/17 [History] Meclizine HCl [Verticalm] 25 mg PO 1200 12/10/17 [History] predniSONE [PredniSONE] 2.5 mg PO Q48H 12/10/17 [History] predniSONE [PredniSONE] 5 mg PO Q48H 12/10/17 [History] HYDROcodone/Acet 5/325 mg [[place] 5-325 mg] 1 tab PO Q4H PRN 7 Days #35 tab 12/12 [Rx] Allergies/Adverse Reactions: 3 Allergy/AdvReac Type Severity Reaction Status Date / Time Ethambutol Allergy Mild Blurry Verified 12/10/17 10:48 Vision acetaminophen [From Tylenol] Allergy HEPATITIS Verified 12/10/17 10:48 REACTION aspirin [ASA] Allergy UNKNOWN Verified 12/10/17 10:48 clarithromycin Allergy Rash Verified 12/10/17 10:48 morphine Allergy Shakiness Verified 12/10/17 10:48 Sulfa (Sulfonamide Allergy unknown Verified 12/10/17 10:48 Antibiotics) azathioprine [From Imuran] AdvReac Shakiness Verified 12/10/17 10:48 cephalexin [From Keflex] AdvReac Diarrhea Verified 12/10/17 10:48 Oxycodone AdvReac Nausea Verified 12/10/17 10:48 Penicillins [PCN] AdvReac Hives Verified 12/10/17 10:48 - Respiratory Orders Smoking Cessation: Smoking cessation has been advised. For more information, call the [place] Tobacco Quit Line at 9-697-BPBC-NOW. - Ancillary Orders May use pressure relief devices daily prn, May go on KEANU w/family/respon libertarian w /meds at nurse discretion PRN, May consult with Dentist, Tribal Judge, Choir Singer PRN - Mobility Orders Chair, Ambulate (With hemiwalker) - Rehabiliation Orders Rehab Potential: Good Rehab Orders: Evaluation for Physical Therapy, Evaluation for Occupational Therapy Other: PT/OT. NWB to affected upper extremity. Follow Shoulder Precautions x 6 weeks. Stay in brace during activity and at night. Remove brace during exercises. ICE and elevate extremity frequently throughout the day. - Treatments Skin tear care topically daily PRN per policy List/Other: Opsite placed. Keep dressing intact until first follow up appointment. If greater than 50% saturated, notify office, remove dressing and place appropriate dressing back in place. Leave Zipline intact. Opsite dressing is water resistant, not water-proof. OK to shower, but do not get dressing wet. - Diet Orders Regular CERTIFICATION: I certify that the transfer of the above named patient to an Extended Care Facility is necessary for the continuing treatment of the diagnosis listed. The above information is true and accurate reflection of patient's current condition. Confidential - Redisclosure prohibited without a patient's written consent.
[2017-12-12] MEDS: predniSONE 5 MG TABLET PO SCH (16:15)
[2017-12-13] MEDS: *HR* Enoxaparin 30 MG/0.3 ML SYRINGE SQ SCH (05:17)
[2017-12-13] MEDS: Multivit/Ca/Min/Fe/FA 1 TAB TABLET PO SCH (08:11)
[2017-12-13] MEDS: rOPINIRole 0.25 MG TABLET PO SCH (08:11)
[2017-12-13] MEDS: Aspirin Enteric Coated 81 MG Tablet PO SCH (08:11)
[2017-12-13] MEDS: Cholecalciferol (D-3) 1,000 UNIT TABLET PO SCH (08:11)
[2017-12-13] MEDS: Insulin LISPRO 300 UNITS/3 ML VIAL SQ SCH (08:12)
[2017-12-13] MEDS: Gabapentin 400 MG CAPSULE PO SCH (08:12)
[2017-12-13] MEDS: Furosemide 20 MG TABLET PO SCH (08:12)
[2017-12-13] MEDS: traMADol 50 MG TABLET PO PRN (08:30)
--- NOTE | 2017-12-13 10:35 | Orthopedics Progress Note ---
Date of Encounter: 12/13/17 Time of Encounter: 10:34 Subjective Interval history: Patient was seen this morning doing well without complaints. Afebrile vital signs stable. Operative extremity: Neurovascularly intact Dressing clean dry and intact Calves nontender Assessment and plan: Continue with postoperative care; ECF today. Objective Vital signs: Vital Signs Temp Pulse Resp BP Pulse Ox 12/13/17 00:08 99.5 F 93 16 119/68 94 12/12/17 18:17 99.4 F 102 15 125/80 90 12/12/17 16:00 98.7 F 81 17 132/79 94 12/12/17 14:11 98.1 F 77 16 107/68 96 Intake and Output 12/12/17 12/13/17 12/13/17 23:59 07:59 15:59 Intake Total 180 / 180 240 / 240 Balance 180 / 180 240 / 240 Intake: Oral 180 / 180 240 / 240 Other: Meal Breakfast Percent of Meal Consumed 100% # Voids 1 # Urine Diapers 1 Blood Glucose* 116 - Labs CBC & BMP: 12/12/17 00:46 12/10/17 15:32 Labs: Abnormal lab results Chloride 109 mEq/L (98-107) H 12/10/17 15:32 Est GFR (Non-Af Amer) 56 (> 60) L 12/10/17 15:32 Glucose 120 mg/dL (70-105) H 12/10/17 15:32 - VTE Documentation of Mechanical Device: Venous foot pump, device Consult Discharge Plan - Plan Additional Instructions: Discharge Instructions: Total Shoulder Please call [facility] ([phone]), your Primary Care Physician, or report to the Emergency Room if you have any of the following symptoms: Nausea, vomiting, fever greater that 101.5, swelling, chest pain, shortness of breath, increased pain/redness/drainage/odor for your incision site, numbness/ tingling, or any other concerning symptoms. ACTIVITY: Always keep your arm in the sling. Do not raise your arm away from your body. Do not use your arm to help with getting in or out of bed. No weight bearing permitted. Only perform those exercises given to you by your therapist. MEDICATIONS: Upon discharge resume your home medications. Take all the medications as prescribed. Take a stool softener if taking narcotic pain medications. Stool softeners are only effective if you drink enough fluids. Drink 6-8 glass of water or fluids a day, unless this is not allowed for another health problem. Despite using stool softeners, if you haven't had a bowel movement in 3 days, please switch to a gentle laxative. Gentle laxatives are sold over the counter. You should have a bowel movement within 24 hours, if not call the office. You will be discharged from the hospital with a prescription for pain medication. You are encouraged to decrease the use of narcotic pain medication as tolerated. Should you require a refill, please call the office. [facility] prescribes narcotic pain medication for only 4-6 weeks after surgery. If you require pain medication beyond this time period, you may be referred to your Primary Care Physician or to the Pain Clinic for further evaluation. Plan ahead for refills on pain medication as many narcotics either need to be picked up at the office or mailed. It is best to call 48-72 hours in advance of needing a prescription refill so you don't run out of medication. To help control the post-operative pain, you may take NSAIDs (Aleve,Advil, Motrin, Ibuprofen, Naprosyn) or Tylenol as prescribed on the bottle in addition to the pain medication. WOUND CARE: Leave the dressing on for 7-10 days. You may change the dressing if it becomes saturated greater than 50%. Do not get the dressing wet at anytime. Wash your hands with antibacterial soap, rinse and dry prior to any wound care. If you have maria teresa the visiting nurse or rehab facility can remove the stapes 10-14 days after surgery and place steri-strips across the wound. Leave the steri-strips in place until they fall off on their own. You may let water from the shower run on top of the steri-strips. If you do not have a visiting nurse or rehab facility, you will need to return to the office at 10-14 days for the maria teresa to be removed. If you have itching or redness around the dressing call the office. FOLLOW-UP: Please follow up with your surgeon in the orthopedic clinic, as scheduled Referrals: Lesly Pierce PAC [Physician Crane Assembler] - 12/25/17 9:30 am Turner Ventura MD [Primary Care Provider] - 12/19/17 10:15 am Prescriptions: HYDROcodone/Acet 5/325 mg [[place] 5-325 mg] 1 tab PO Q4H PRN 7 Days #35 tab PRN Reason: Severe Pain
[2017-12-13 12:08] VITALS: BP 111/68
== END 2017-12-13 12:44 | disposition home health service (06) | DRG 483 ==
LOC: SAMDAY 10:06 → 3NENU 14:19
PROVIDERS: ADMIT Orthopaedic Surgery; ATTEND Orthopaedic Surgery